=== PATIENT | male | born 1945 | race Caucasian/White ===

== ENCOUNTER → 2016-07-24 | Outpatient (CLI) | payer OTHER ==
--- NOTE | 2016-07-24 16:42 | CT ---
HISTORY: mental status changes and neck lymphadenopathy Study: CT brain without contrast Comparison: None Technique: Multiple axial images of the brain were obtained from the skull base to the vertex without administr ation of IV contrast. Findings: The ventricles are borderline enlarged there is diffuse mild chronic recurrent sulci. No intracrania l hemorrhage or edema is seen. There is mild periventricular low density bilaterally which is fairly symmetric. There is no extra-axial fluid collection or midline shift. No masses are seen. IMPRESSION: Mild cortical atrophy and minimal chronic microischemic changes in the deep white matter with no acu te intracranial abnormality seen. Mild chronic sinusitis. Reported By:
--- NOTE | 2016-07-24 17:27 | CT ---
CT SOFT TISSUE NECK WITHOUT CONTRAST CLINICAL HISTORY: 71-year-old male with enlarged lymph node. COMPARISON: None. TECHNIQUE: Multiple axial CT images were obtained from the supraorbital region to the aortic arch w ithout the administration of contrast. The images were reformatted in the sagittal and coronal plane s. FINDINGS: The visualized brain parenchyma is normal in appearance. The orbits and globes are normal in appearance. Trace mucosal thickening in the left maxillary sinus with the remaining imaged parana onofre sinuses, tympanic cavities and mastoid air cells clear. The nasal cavity, nasopharynx, oropharyn x, hypopharynx, supra- and infraglottic larynx are normal. Neck spaces are normal. Multiple, subcent imeter, normal appearing lymph nodes throughout the neck that are nonspecific. The trachea is normal in appearance. Parotid, sublingual and the submandibular glands are symmetric and unremarkable. The thyroid gland is normal in attenuation and morphology. Vascular structures are incompletely eval uated, but grossly normal in appearance. The lung apices are clear. The aortic arch, great vessels, and superior mediastinum are normal in appearance. Multilevel degenerative disease of the imaged spi ne with no fracture or malalignment of the osseous structures. IMPRESSION: Normal CT soft tissue neck. Reported By:
== END ==
LOC: RAD 14:03
PROVIDERS: ATTEND Nurse Practitioner Family
DX: R59.0 Localized enlarged lymph nodes (principal)
CPT/HCPCS: 70450; 70490

== ENCOUNTER 2020-03-27 10:21 | Inpatient (IN) ==
[2020-03-27 10:36] VITALS: BMI 43.0
--- NOTE | 2020-03-27 11:06 | DR.URIAD ---
HPI Time Seen Time Seen by Provider: 03/27/20 11:02 PCP Primary Care Physician: GORDON HILL Complaint Chief Complaint:: PT STATES HE TESTED POSITIVE FOR COVID 10 DAYS AGO AND HE C/O SWEATING AT NIGHT , GARCIA, AND THAT IS LUNGS ARE NOT FEELING THE SAME ..BR Self Treatment fo Chief Complaint: PO MEDS COVID-19 Coronavirus risk:travel/contact w/high risk person: No Has patient experienced Coronavirus symptoms: Yes Coronavirus symptoms experienced: Fever, Coughing and Shortness of Breath Source History Provided: Patient Mode of Arrival Mode of Arrival: Ambulatory Timing Onset of Chief Complaint: 03/20/20 PMH PMH Past Medical History: No Past Surgical History: Yes Past Surgical History Comment: BACK , CATARACT Family History History of Family Medical Conditions: No Social History Does patient currently use any type of tobacco product: No Have you used tobacco products in the last 12 months: No Type of Tobacco Use: None Does any household member use tobacco: No Alcohol Use: None Do you use any recreational Drugs:: No Lives With: Family Lives Where: Home Travel Risk Coronavirus risk:travel/contact w/high risk person: No Has patient experienced Coronavirus symptoms: Yes Coronavirus symptoms experienced: Fever, Coughing and Shortness of Breath Infectious screening In the last 2 months have you had wt loss of >10#?: NO Have you had fever, night sweats or hemotysis?: No Have you traveled outside the country in the last 6 months?: No Isolation: Droplet PE Vital Signs Vitals: Temperature 97.7 F Pulse Rate 75 Respiratory Rate 22 Blood Pressure 147/92 O2 Sat by Pulse Oximetry 97 ROR Labs Reviewed Result Diagrams: 03/27/20 11:35 03/27/20 11:35 Laboratory: WBC 6.4 X10^3/uL (3.6-10.0) 03/27/20 11:35 RBC 4.50 X10^6/uL (4.7-6.0) L 03/27/20 11:35 Hgb 12.9 g/dL (13.5-18.0) L 03/27/20 11:35 Hct 38.9 % (42.0-54.0) L 03/27/20 11:35 MCV 86.5 fL (80.0-100.0) 03/27/20 11:35 MCH 28.6 pg (27.0-34.0) 03/27/20 11:35 MCHC 33.0 g/dL (33.0-35.0) 03/27/20 11:35 RDW 16.7 % (11.6-16.5) H 03/27/20 11:35 Plt Count 281 X10^3/uL (150.0-450.0) 03/27/20 11:35 MPV 7.1 fL (7.4-11.0) L 03/27/20 11:35 Neut % (Auto) 75.9 % (42.0-75.0) H 03/27/20 11:35 Lymph % (Auto) 13.3 % (21.0-51.0) L 03/27/20 11:35 [place] % (Auto) 9.3 % (0.0-13.0) 03/27/20 11:35 Eos % (Auto) 0.9 % (0.9-2.9) 03/27/20 11:35 Baso % (Auto) 0.6 % (0.2-1.0) 03/27/20 11:35 Neut # (Auto) 4.9 x10^3/uL (2.2-4.8) H 03/27/20 11:35 Lymph # (Auto) 0.9 X10^3/uL (1.3-2.9) L 03/27/20 11:35 [place] # (Auto) 0.6 x10^3/uL (0.3-0.8) 03/27/20 11:35 Eos # (Auto) 0.1 x10^3/uL (0.0-0.2) 03/27/20 11:35 Baso # (Auto) 0.0 X10^3/uL (0.0-0.1) 03/27/20 11:35 Absolute Nucleated RBC 0.0 /100WBC 03/27/20 11:35 Sample Site Lr 03/27/20 11:53 ABG pH 7.440 (7.35-7.45) 03/27/20 11:53 ABG pCO2 39.0 mmHg (35.0-45.0) 03/27/20 11:53 ABG pO2 74.0 mmHg (80.0-100.0) L 03/27/20 11:53 ABG HCO3 26.5 mmol/L (22-26) H 03/27/20 11:53 ABG O2 Saturation 95.0 % (90-100) 03/27/20 11:53 ABG Base Excess 2.2 mmol/L (-2.0-2.0) H 03/27/20 11:53 Eduard Test Pos 03/27/20 11:53 A-a Gradient 27.0 mmHg 03/27/20 11:53 FiO2 21.0 03/27/20 11:53 Blood Gas Comments Ishan well cb 03/27/20 11:53 Sodium 139 mmol/L (136-145) 03/27/20 11:35 Corrected Sodium 140 mmol/L (136-145) 03/27/20 11:35 Potassium 3.7 mmol/L (3.5-5.1) 03/27/20 11:35 Chloride 101 mmol/L (98-107) 03/27/20 11:35 Carbon Dioxide 27.6 mmol/L (21-32) 03/27/20 11:35 BUN 19 mg/dL (7-18) H 03/27/20 11:35 Creatinine 1.18 mg/dL (0.70-1.30) 03/27/20 11:35 Est GFR (MDRD) Af Amer > 60 (>60) 03/27/20 11:35 Est GFR (MDRD) Non-Af > 60 (>60) 03/27/20 11:35 Glucose 129 mg/dL (65-99) H 03/27/20 11:35 Lactic Acid 1.2 mmol/L (0.4-2.0) 03/27/20 11:35 Calcium 9.7 mg/dL (8.5-10.1) 03/27/20 11:35 Corrected Calcium 10.3 mg/dL (8.5-10.1) H 03/27/20 11:35 Total Bilirubin 0.70 mg/dL (0.2-1.0) 03/27/20 11:35 AST 20 Units/L (15-37) 03/27/20 11:35 ALT 19 Units/L (12-78) 03/27/20 11:35 Alkaline Phosphatase 113 Units/L (46-116) 03/27/20 11:35 Creatine Kinase 58 Units/L (39-308) 03/27/20 11:35 CK-MB (CK-2) < 1.0 ng/mL (0-4.0) 03/27/20 11:35 CK/CKMB % Calc 1.7 % (<4) 03/27/20 11:35 Troponin I < 0.02 ng/mL (0-1.5) 03/27/20 11:35 Total Protein 7.9 g/dL (6.4-8.2) 03/27/20 11:35 Albumin 3.3 g/dL (3.4-5.0) L 03/27/20 11:35 Globulin 4.6 g/dL (2.5-4.5) H 03/27/20 11:35 Albumin/Globulin Ratio 0.7 Ratio (1.1-2.1) L 03/27/20 11:35 Specimen Type Clean catch urine 03/27/20 10:59 Urine Color Yellow (YELLOW) 03/27/20 10:59 Urine Appearance Clear (CLEAR) 03/27/20 10:59 Urine pH 6.0 (5.0 - 8.0) 03/27/20 10:59 Ur Specific [place] 1.020 (1.000-1.030) 03/27/20 10:59 Urine Protein 4+ (NEGATIVE) 03/27/20 10:59 Urine Glucose (UA) Negative (NEGATIVE) 03/27/20 10:59 Urine Ketones Negative (NEGATIVE) 03/27/20 10:59 Urine Occult Blood 2+ (NEGATIVE) 03/27/20 10:59 Urine Nitrite Negative (NEGATIVE) 03/27/20 10:59 Urine Bilirubin Negative (NEGATIVE) 03/27/20 10:59 Urine Urobilinogen Normal (NORMAL) 03/27/20 10:59 Ur Leukocyte Esterase Negative (NEGATIVE) 03/27/20 10:59 Urine RBC 5-10 /HPF (0-3) A 03/27/20 10:59 Urine WBC 0-2 /HPF (0-5) 03/27/20 10:59 Ur Squamous Epith Cells Rare /HPF (NEGATIVE) 03/27/20 10:59 Amorphous Sediment 2+ /HPF (NEGATIVE) 03/27/20 10:59 Urine Bacteria Trace /HPF (NEGATIVE) 03/27/20 10:59 Ur Culture Indicated? No/not indicated 03/27/20 10:59 Opioid Opioid Risk Tool Age (Cory box if 16-45): No History of Preadolescent Sexual Abuse: No Total: 0 Total Score Risk Category: Low Risk Copyright: Marquis SANTIZO predicting aberrant behaviors Instructions Forms: Precautions for COVID19 Patient Portal Social Distancing
[2020-03-27 11:15] LABS: BILIRUBIN,URINE NEGATIVE (NEGATIVE); BLOOD/HEMOGLOBIN,URINE 2+ (NEGATIVE); GLUCOSE, URINE NEGATIVE (NEGATIVE); KETONES,URINE NEGATIVE (NEGATIVE); LEUKOCYTE ESTERASE ,URINE NEGATIVE (NEGATIVE); NITRITES,URINE NEGATIVE (NEGATIVE); PROTEIN,URINE 4+ (NEGATIVE); UROBILINOGEN,URINE NORMAL (NORMAL)
[2020-03-27 11:33] LABS: APPEARANCE,URINE CLEAR (CLEAR); COLOR,URINE YELLOW (YELLOW)
[2020-03-27 11:34] LABS: AMORPHOUS SEDIMENT,UR 2+ /HPF (NEGATIVE); BACTERIA,URINE TRACE /HPF (NEGATIVE); SQUAMOUS EPITHELIAL CELL,UR RARE /HPF (NEGATIVE)
--- NOTE | 2020-03-27 11:40 | RAD ---
HISTORYPT STATES HE TESTED POSITIVE FOR COVID 10 DAYS AGO AND HE C/O SWEATING AT NIGHT, GARCIA, AND THAT IS LUNGS ARE NOT FEELING THE SAMESTUDYCHEST, 1 VIEWCOMPARISONChest x-ray dated December 11, 2019.FINDINGSThe trachea is midline. The cardiac silhouette is unchanged. Question of bilateral patchy lower lobe airspace disease. No significant pleural effusion or pneumothorax. The bony thorax is unremarkable.IMPRESSIONQuestion of bilateral patchy airspace disease. Recommend clinical/laboratory correlation and following to resolution.Electronically signed by: BRONSON ALANIZ (Mar 27, 2020 11:38:39)
[2020-03-27 11:58] LABS: ABG ALLEN TEST POS; ABG BASE EXCESS 2.2 mmol/L (-2.0-2.0); ABG HCO3 26.5 mmol/L (22-26)
[2020-03-27 12:01] LABS: BASOPHILS % (AUTO) 0.6 % (0.2-1.0); EOSINOPHILS # (AUTO) 0.1 x10^3/uL (0.0-0.2); EOSINOPHILS % (AUTO) 0.9 % (0.9-2.9); HEMATOCRIT 38.9 % (42.0-54.0); HEMOGLOBIN 12.9 g/dL (13.5-18.0); LYMPHOCYTES # (AUTO) 0.9 X10^3/uL (1.3-2.9); LYMPHOCYTES % (AUTO) 13.3 % (21.0-51.0); MEAN CORPUSCULAR HEMOGLOBIN 28.6 pg (27.0-34.0); MEAN CORPUSCULAR VOLUME 86.5 fL (80.0-100.0); MEAN PLATELET VOLUME 7.1 fL (7.4-11.0); MONOCYTES # (AUTO) 0.6 x10^3/uL (0.3-0.8); MONOCYTES % (AUTO) 9.3 % (0.0-13.0); NEUTROPHILS # (AUTO) 4.9 x10^3/uL (2.2-4.8); NEUTROPHILS % (AUTO) 75.9 % (42.0-75.0); PLATELET COUNT 281 X10^3/uL (150.0-450.0); RED CELL DISTRIBUTION WIDTH 16.7 % (11.6-16.5); WHITE BLOOD COUNT 6.4 X10^3/uL (3.6-10.0)
[2020-03-27 12:18] LABS: LACTIC ACID 1.2 mmol/L (0.4-2.0)
[2020-03-27 12:25] LABS: ALANINE AMINOTRANSFERASE 19 Units/L (12-78); ALBUMIN 3.3 g/dL (3.4-5.0); ALKALINE PHOSPHATASE 113 Units/L (46-116); ASPARTATE AMINO TRANSFERASE 20 Units/L (15-37); BLOOD UREA NITROGEN 19 mg/dL (7-18); CALCIUM 9.7 mg/dL (8.5-10.1); CHLORIDE 101 mmol/L (98-107); CKMB % 1.7 % (<4); COR CA(FOR HYPOALB) 10.3 mg/dL (8.5-10.1); COR NA(FOR HYPERGLY) 140 mmol/L (136-145); CREATINE KINASE 58 Units/L (39-308); CREATINE KINASE MB < 1.0 ng/mL (0-4.0); CREATININE 1.18 mg/dL (0.70-1.30); SODIUM 139 mmol/L (136-145); TOTAL PROTEIN 7.9 g/dL (6.4-8.2); TROPONIN I < 0.02 ng/mL (0-1.5); eGFR NON BLACK RACES > 60 (>60)
[2020-03-27 12:47] LABS: CARBON DIOXIDE 27.6 mmol/L (21-32)
[2020-03-27] MEDS ORDERED: ROCEPHIN 1 GRAM IV PREMIX 1 G/50 ML IV.SOLN. IV SCH (15:00)
[2020-03-27] MEDS ORDERED: NS 1/2 1000 ML IV 1,000 ML IV ONE (15:39)
[2020-03-27] MEDS: NS 1/2 1000 ML IV 1,000 ML IV SCH (15:46)
[2020-03-27] MEDS: ZOSYN VIAL 3.375 GRAMS 3.375 G in NS 100 ML IV + SPIKE MINIBAG* 100 ML IV SCH ×2 (15:46→20:59)
[2020-03-27] MEDS: DUONEB 0.5 MG/3 MG (3 mL) NEB SCH ×2 (16:36→21:10)
[2020-03-27] MEDS: ROBITUSSIN DM PO SCH ×2 (17:47→20:20)
[2020-03-27 18:02] LABS: CREATINE KINASE MB < 1.0 ng/mL (0-4.0); TROPONIN I < 0.02 ng/mL (0-1.5)
[2020-03-27 18:23] LABS: CKMB % 1.5 % (<4); CREATINE KINASE 67 Units/L (39-308)
[2020-03-27] MEDS ORDERED: POTASSIUM CHL 60 MEQ/NS 0.45% 500 ML IV PRN (19:48)
[2020-03-27] MEDS ORDERED: K-DUR TAB 20 MEQ PO PRN (19:48)
[2020-03-27] MEDS ORDERED: K-RIDER 10 MEQ/NS 100 ML 10 MEQ/100 ML BAG IV PRN (19:48)
[2020-03-27] MEDS ORDERED: MICRO K EXTEN CAP 10 MEQ PO PRN (19:48)
[2020-03-27] MEDS ORDERED: POTASSIUM CHL 40 MEQ/NS 0.45% 500 ML IV PRN (19:48)
[2020-03-27] MEDS ORDERED: POTASSIUM CHLORIDE LIQ 20 MEQ UDC PO PRN (19:48)
[2020-03-27] MEDS ORDERED: KLOR-CON PO PRN (19:48)
[2020-03-27] MEDS ORDERED: TYLENOL 325 MG TAB PO ONE (20:03)
[2020-03-27] MEDS ORDERED: NEURONTIN CAP 400 MG ONE ×2 (20:10→20:14)
[2020-03-27] MEDS: PriLOSEC PO SCH (20:20)
[2020-03-27] MEDS: COREG TAB 25 MG PO SCH (20:20)
[2020-03-27] MEDS: ULTRAM PO PRN (20:20)
[2020-03-27] MEDS: TUSSIONEX PENNKINETIC SUSP PO PRN (20:20)
[2020-03-27] MEDS: NEURONTIN CAP 400 MG PO SCH (20:59)
[2020-03-27] MEDS ORDERED: TYLENOL 325 MG TAB PO PRN (21:02)
[2020-03-27] MEDS: PULMICORT NEB TX 0.5 MG NEB SCH (21:10)
[2020-03-27] MEDS ORDERED: CHLORASEPTIC SPRAY MT PRN (23:26)
[2020-03-28 00:04] LABS: CKMB % 1.5 % (<4); CREATINE KINASE 68 Units/L (39-308); CREATINE KINASE MB < 1.0 ng/mL (0-4.0); TROPONIN I < 0.02 ng/mL (0-1.5)
[2020-03-28 05:42] LABS: BASOPHILS % (AUTO) 0.5 % (0.2-1.0); EOSINOPHILS # (AUTO) 0.1 x10^3/uL (0.0-0.2); EOSINOPHILS % (AUTO) 2.6 % (0.9-2.9); HEMATOCRIT 35.1 % (42.0-54.0); HEMOGLOBIN 11.4 g/dL (13.5-18.0); LYMPHOCYTES # (AUTO) 1.2 X10^3/uL (1.3-2.9); LYMPHOCYTES % (AUTO) 25.3 % (21.0-51.0); MEAN CORPUSCULAR HEMOGLOBIN 28.1 pg (27.0-34.0); MEAN CORPUSCULAR HGB CONC 32.5 g/dL (33.0-35.0); MEAN CORPUSCULAR VOLUME 86.3 fL (80.0-100.0); MEAN PLATELET VOLUME 7.6 fL (7.4-11.0); MONOCYTES # (AUTO) 0.7 x10^3/uL (0.3-0.8); MONOCYTES % (AUTO) 14.4 % (0.0-13.0); NEUTROPHILS # (AUTO) 2.7 x10^3/uL (2.2-4.8); NEUTROPHILS % (AUTO) 57.2 % (42.0-75.0); PLATELET COUNT 268 X10^3/uL (150.0-450.0); RED BLOOD COUNT 4.07 X10^6/uL (4.7-6.0); RED CELL DISTRIBUTION WIDTH 16.2 % (11.6-16.5); WHITE BLOOD COUNT 4.7 X10^3/uL (3.6-10.0)
[2020-03-28] MEDS: NS 1/2 1000 ML IV 1,000 ML IV SCH (05:54)
[2020-03-28] MEDS: NEURONTIN CAP 400 MG PO SCH ×3 (05:54→21:14)
[2020-03-28] MEDS: ZOSYN VIAL 3.375 GRAMS 3.375 G in NS 100 ML IV + SPIKE MINIBAG* 100 ML IV SCH ×3 (05:55→21:15)
[2020-03-28 05:56] LABS: ALANINE AMINOTRANSFERASE 19 Units/L (12-78); ALBUMIN 2.9 g/dL (3.4-5.0); ALKALINE PHOSPHATASE 92 Units/L (46-116); ASPARTATE AMINO TRANSFERASE 18 Units/L (15-37); BLOOD UREA NITROGEN 21 mg/dL (7-18); CARBON DIOXIDE 25.2 mmol/L (21-32); CHLORIDE 103 mmol/L (98-107); COR CA(FOR HYPOALB) 9.9 mg/dL (8.5-10.1); CREATININE 1.01 mg/dL (0.70-1.30); SODIUM 139 mmol/L (136-145); TOTAL PROTEIN 6.9 g/dL (6.4-8.2); eGFR NON BLACK RACES > 60 (>60)
[2020-03-28 06:55] LABS: PLATELET MORPHOLOGY COMMENT NORMAL (NORMAL)
--- NOTE | 2020-03-28 08:11 | DR.H&P ---
H&P History & Physical for Day of: H&P Date: 03/28/20 Chief Complaint Chief Complaint: Fevers, Chills, Weakness Shortness of breath Allergies Allergies Allergy/AdvReac Type Severity Reaction Status Date / Time No Known Drug Allergies Allergy Verified 03/27/20 10:32 History of Present Illness History of Present Illness: Pt is a 75 year old male past medical history HTN, DMT2, EARLINE, admitted after having recurrent fevers, chills, shortness of breath, and headache. He was diagnosed with COVID-19 on 03/17. Since he reports symptoms have gradually worsened. Labs/imaging: Wbc 6.4>4.7, Hgb 12.9>11.4, Plt 281>268, Na 139, K 3.8, Cr 1.01, Glucose 101, CRP 62, Troponin negative x 3, UA negative, AB.44/39/74/26.5/95% on RA. CXR: Question of bilateral patchy airspace disease.Recommend clinical/laboratory correlation and following to resolution. Blood Culture and Sputum Culture pending. Pt was started on IVF, Remdesivir, Decadron, Zosyn, Bronchodilators, I/S, RT support, Pneumonia protocol, immune supporting supplements. Will restart home medications. Continue to monitor and follow up labs/imaging in the morning. Past Medical History Past Medical History: Diabetes, Hypertension and Sleep Apnea Family History Family Medical History: Diabetes Mellitus, Cancer, [place], Coronary Artery Disease and Hypertension Social History Does patient currently use any type of tobacco product: No Have you used tobacco products in the last 12 months: No Type of Tobacco Use: None Does any household member use tobacco: No Alcohol Use: None Drug Use: None Medications Home Medications: No Known Drug Allergies Allergy (Verified 03/27/20 10:32) CONTINUE taking the following medications allopurinol 300 mg PO DAILY 03/27/20 [History] carvedilol [Coreg] 25 mg PO BID 03/27/20 [History] finasteride 5 mg PO DAILY 03/27/20 [History] [id number] [Trelegy Ellipta] 1 inh INHALATION DAILY PRN 03/27/20 [History] gabapentin [Neurontin] 800 mg PO TID 03/27/20 [History] losartan 100 mg PO DAILY 03/27/20 [History] omeprazole [Prilosec] 20 mg PO BID 03/27/20 [History] tamsulosin 0.4 mg PO QHS 03/27/20 [History] torsemide 10 mg PO DAILY 03/27/20 [History] tramadol [Ultram] 50 mg PO TID PRN 03/27/20 [History] Labs Result Diagrams: 03/28/20 04:10 03/28/20 04:10 Labs: 03/27/20 15:45 Sputum - Expectorated Sputum - Final Laboratory WBC 4.7 X10^3/uL (3.6-10.0) 03/28/20 04:10 RBC 4.07 X10^6/uL (4.7-6.0) L 03/28/20 04:10 Hgb 11.4 g/dL (13.5-18.0) L 03/28/20 04:10 Hct 35.1 % (42.0-54.0) L 03/28/20 04:10 MCV 86.3 fL (80.0-100.0) 03/28/20 04:10 MCH 28.1 pg (27.0-34.0) 03/28/20 04:10 MCHC 32.5 g/dL (33.0-35.0) L 03/28/20 04:10 RDW 16.2 % (11.6-16.5) 03/28/20 04:10 Plt Count 268 X10^3/uL (150.0-450.0) 03/28/20 04:10 Plt Count Comment Adequate (ADEQUATE) 03/28/20 04:10 MPV 7.6 fL (7.4-11.0) 03/28/20 04:10 Neut % (Auto) 57.2 % (42.0-75.0) 03/28/20 04:10 Lymph % (Auto) 25.3 % (21.0-51.0) 03/28/20 04:10 [place] % (Auto) 14.4 % (0.0-13.0) H 03/28/20 04:10 Eos % (Auto) 2.6 % (0.9-2.9) 03/28/20 04:10 Baso % (Auto) 0.5 % (0.2-1.0) 03/28/20 04:10 Neut # (Auto) 2.7 x10^3/uL (2.2-4.8) 03/28/20 04:10 Lymph # (Auto) 1.2 X10^3/uL (1.3-2.9) L 03/28/20 04:10 [place] # (Auto) 0.7 x10^3/uL (0.3-0.8) 03/28/20 04:10 Eos # (Auto) 0.1 x10^3/uL (0.0-0.2) 03/28/20 04:10 Baso # (Auto) 0.0 X10^3/uL (0.0-0.1) 03/28/20 04:10 Absolute Nucleated RBC 0.1 /100WBC 03/28/20 04:10 Total Counted 100 03/28/20 04:10 Neutrophils % (Manual) 62 % (39-76) 03/28/20 04:10 Lymphocytes % (Manual) 27 % (13-43) 03/28/20 04:10 Monocytes % (Manual) 10 % (4-9) H 03/28/20 04:10 Eosinophils % (Manual) 1 % (0-6) 03/28/20 04:10 Plt Morphology Comment Normal (NORMAL) 03/28/20 04:10 RBC Morphology Normal (NORMAL) 03/28/20 04:10 Sample Site Lr 03/27/20 11:53 ABG pH 7.440 (7.35-7.45) 03/27/20 11:53 ABG pCO2 39.0 mmHg (35.0-45.0) 03/27/20 11:53 ABG pO2 74.0 mmHg (80.0-100.0) L 03/27/20 11:53 ABG HCO3 26.5 mmol/L (22-26) H 03/27/20 11:53 ABG O2 Saturation 95.0 % (90-100) 03/27/20 11:53 ABG Base Excess 2.2 mmol/L (-2.0-2.0) H 03/27/20 11:53 Eduard Test Pos 03/27/20 11:53 A-a Gradient 27.0 mmHg 03/27/20 11:53 FiO2 21.0 03/27/20 11:53 Blood Gas Comments Ishan well cb 03/27/20 11:53 Sodium 139 mmol/L (136-145) 03/28/20 04:10 Corrected Sodium TNP 03/28/20 04:10 Potassium 3.8 mmol/L (3.5-5.1) 03/28/20 04:10 Chloride 103 mmol/L (98-107) 03/28/20 04:10 Carbon Dioxide 25.2 mmol/L (21-32) 03/28/20 04:10 BUN 21 mg/dL (7-18) H 03/28/20 04:10 Creatinine 1.01 mg/dL (0.70-1.30) 03/28/20 04:10 Est GFR (MDRD) Af Amer > 60 (>60) 03/28/20 04:10 Est GFR (MDRD) Non-Af > 60 (>60) 03/28/20 04:10 Glucose 101 mg/dL (65-99) H 03/28/20 04:10 Lactic Acid 1.2 mmol/L (0.4-2.0) 03/27/20 11:35 Calcium 9.0 mg/dL (8.5-10.1) 03/28/20 04:10 Corrected Calcium 9.9 mg/dL (8.5-10.1) 03/28/20 04:10 Magnesium 2.0 mg/dL (1.7-2.9) 03/27/20 17:31 Total Bilirubin 0.50 mg/dL (0.2-1.0) 03/28/20 04:10 AST 18 Units/L (15-37) 03/28/20 04:10 ALT 19 Units/L (12-78) 03/28/20 04:10 Alkaline Phosphatase 92 Units/L (46-116) 03/28/20 04:10 Creatine Kinase 68 Units/L (39-308) 03/27/20 22:48 CK-MB (CK-2) < 1.0 ng/mL (0-4.0) 03/27/20 22:48 CK/CKMB % Calc 1.5 % (<4) 03/27/20 22:48 Troponin I < 0.02 ng/mL (0-1.5) 03/27/20 22:48 C-Reactive Protein 62.10 mg/L (0-3.0) H 03/28/20 04:10 Total Protein 6.9 g/dL (6.4-8.2) 03/28/20 04:10 Albumin 2.9 g/dL (3.4-5.0) L 03/28/20 04:10 Globulin 4.0 g/dL (2.5-4.5) 03/28/20 04:10 Albumin/Globulin Ratio 0.7 Ratio (1.1-2.1) L 03/28/20 04:10 Specimen Type Clean catch urine 03/27/20 10:59 Urine Color Yellow (YELLOW) 03/27/20 10:59 Urine Appearance Clear (CLEAR) 03/27/20 10:59 Urine pH 6.0 (5.0 - 8.0) 03/27/20 10:59 Ur Specific [place] 1.020 (1.000-1.030) 03/27/20 10:59 Urine Protein 4+ (NEGATIVE) 03/27/20 10:59 Urine Glucose (UA) Negative (NEGATIVE) 03/27/20 10:59 Urine Ketones Negative (NEGATIVE) 03/27/20 10:59 Urine Occult Blood 2+ (NEGATIVE) 03/27/20 10:59 Urine Nitrite Negative (NEGATIVE) 03/27/20 10:59 Urine Bilirubin Negative (NEGATIVE) 03/27/20 10:59 Urine Urobilinogen Normal (NORMAL) 03/27/20 10:59 Ur Leukocyte Esterase Negative (NEGATIVE) 03/27/20 10:59 Urine RBC 5-10 /HPF (0-3) A 03/27/20 10:59 Urine WBC 0-2 /HPF (0-5) 03/27/20 10:59 Ur Squamous Epith Cells Rare /HPF (NEGATIVE) 03/27/20 10:59 Amorphous Sediment 2+ /HPF (NEGATIVE) 03/27/20 10:59 Urine Bacteria Trace /HPF (NEGATIVE) 03/27/20 10:59 Ur Culture Indicated? No/not indicated 03/27/20 10:59 Review of Systems Constitutional: Fever, Chills and Weakness Eyes: No Symptoms Reported ENT: No Symptoms Reported Respiratory: Cough and Shortness of Breath Cardiovascular: No Symptoms Reported Gastrointestinal: No Symptoms Reported Genitourinary: No Symptoms Reported Musculoskeletal: No Symptoms Reported Skin: No Symptoms Reported Neurological: No Symptoms Reported Physical Exam Vital Signs: Temperature 97.8 F Pulse Rate 90 Respiratory Rate 16 Blood Pressure [Left Arm] 137/78 Blood Pressure 115/55 O2 Sat by Pulse Oximetry 93 Oriented: Normal Eyes: Normal Ear: Normal Nose: Normal Throat: Normal Respiratory: Diminished Throughout Cardiovascular: Normal : Normal Auscultation: Bowel Sounds: Normal Palpation: Normal Tenderness: Normal Skin: Normal Musculoskeletal: Normal Psychiatric: Normal Mood Description: Calm and Appropriate Affect: Normal Speech Pattern: Clear and Appropriate Assessment/Plan (1) Pneumonia due to COVID-19 virus: Status: Acute Plan: IVF, Remdesivir, Decadron, Zosyn, Bronchodilators. Review H&P Reviewed: Yes Patient was examined?: Yes
[2020-03-28] MEDS ORDERED: REMDESIVIR 200 MG in NS 250 ML IV 250 ML IV SCH (08:13)
[2020-03-28] MEDS: PULMICORT NEB TX 0.5 MG NEB SCH ×2 (08:57→20:34)
[2020-03-28] MEDS: DUONEB 0.5 MG/3 MG (3 mL) NEB SCH ×4 (08:57→20:34)
[2020-03-28] MEDS ORDERED: PATIENT'S HOME MEDICATION (Fluticasone-Umeclidin-Vilanter [Trelegy Ellipta] 100-62.5-25 mc IN SCH (09:00)
[2020-03-28] MEDS: COREG TAB 25 MG PO SCH ×2 (09:01→21:12)
[2020-03-28] MEDS: PROSCAR PO SCH (09:04)
[2020-03-28] MEDS: ZYLOPRIM PO SCH (09:04)
[2020-03-28] MEDS: ROBITUSSIN DM PO SCH ×4 (09:05→21:14)
[2020-03-28] MEDS: COZAAR PO SCH (09:05)
[2020-03-28] MEDS: PriLOSEC PO SCH ×2 (09:06→21:14)
[2020-03-28] MEDS: DEMADEX PO SCH (09:08)
[2020-03-28] MEDS: LOVENOX INJ 30 MG SYR SC SCH ×2 (09:50→21:13)
[2020-03-28] MEDS: DECADRON TAB PO SCH (09:50)
[2020-03-28] MEDS: ULTRAM PO PRN (22:00)
[2020-03-28] MEDS: TUSSIONEX PENNKINETIC SUSP PO PRN (22:00)
[2020-03-29] MEDS: NS 1/2 1000 ML IV 1,000 ML IV SCH ×2 (03:13→05:36)
[2020-03-29] MEDS ORDERED: NS 1/2 1000 ML IV 1,000 ML IV ONE (05:26)
[2020-03-29] MEDS: NEURONTIN CAP 400 MG PO SCH (05:35)
[2020-03-29] MEDS: ZOSYN VIAL 3.375 GRAMS 3.375 G in NS 100 ML IV + SPIKE MINIBAG* 100 ML IV SCH (05:36)
[2020-03-29 05:42] LABS: BASOPHILS % (AUTO) 0.3 % (0.2-1.0); HEMATOCRIT 34.9 % (42.0-54.0); HEMOGLOBIN 11.2 g/dL (13.5-18.0); LYMPHOCYTES # (AUTO) 0.6 X10^3/uL (1.3-2.9); LYMPHOCYTES % (AUTO) 11.7 % (21.0-51.0); MEAN CORPUSCULAR HGB CONC 32.1 g/dL (33.0-35.0); MEAN PLATELET VOLUME 7.7 fL (7.4-11.0); MONOCYTES # (AUTO) 0.5 x10^3/uL (0.3-0.8); MONOCYTES % (AUTO) 10.2 % (0.0-13.0); NEUTROPHILS # (AUTO) 3.8 x10^3/uL (2.2-4.8); NEUTROPHILS % (AUTO) 77.8 % (42.0-75.0); PLATELET COUNT 307 X10^3/uL (150.0-450.0); RED BLOOD COUNT 4.01 X10^6/uL (4.7-6.0); RED CELL DISTRIBUTION WIDTH 16.4 % (11.6-16.5); WHITE BLOOD COUNT 4.9 X10^3/uL (3.6-10.0)
[2020-03-29 05:45] LABS: ALANINE AMINOTRANSFERASE 20 Units/L (12-78); ALBUMIN 2.7 g/dL (3.4-5.0); ALKALINE PHOSPHATASE 87 Units/L (46-116); ASPARTATE AMINO TRANSFERASE 20 Units/L (15-37); BLOOD UREA NITROGEN 22 mg/dL (7-18); CARBON DIOXIDE 26.2 mmol/L (21-32); CHLORIDE 103 mmol/L (98-107); COR NA(FOR HYPERGLY) 142 mmol/L (136-145); SODIUM 140 mmol/L (136-145); TOTAL PROTEIN 6.9 g/dL (6.4-8.2); eGFR NON BLACK RACES > 60 (>60)
--- NOTE | 2020-03-29 08:05 | RAD ---
HISTORYSOBSTUDYCHEST, 1 [id number] view of the chestFINDINGSCardiac silhouette is mildly enlarged. Mild scattered interstitial opacities appears similar. No pleural effusion or pneumothorax. Soft tissue attenuation limits evaluation.IMPRESSIONNo significant change. Bilateral interstitial opacities may represent atypical pneumonia.Electronically signed by: Miguel Eddy (Mar 29, 2020 08:03:33)
--- NOTE | 2020-03-29 08:14 | W.DIS.FURT ---
Summary of Discharge Discharge Summary of Date Date of Exam: 03/29/20 Admission Date Date of Admission: 03/27/20 Admission Diagnosis Hospital Course: Pt is a 75 year old male past medical history HTN, DMT2, EARLINE, admitted for COVID-19 pneumonia(positive on 03/17). His hospital/treatment course included: IVF, Remdesivir, Decadron, Zosyn, Bronchodilators, I/S, RT support, Pneumonia protocol, immune supporting supplements. Labs/imaging: Wbc 4.9, Hgb 11.2, Plt 307, Na 140, K 3.8, Cr 1.10, Glucose 193, CRP 62>34, Troponin negative x 3, UA negative, CXR: No significant change. Bilateral interstitial opacities may represent atypical pneumonia. Pt responded well to treatments. He did not require any supplemental oxygen. Rx levaquin and decadron x 3 days. Pt was discharged in stable condition, instructed to follow up with pcp in 3-5 days. Vital Signs: Vital Signs (72 hours) 03/27/20 10:32 03/27/20 11:06 03/27/20 11:15 Temperature 97.7 F Pulse Rate 120 H 140 H 94 H Respiratory Rate 22 Blood Pressure 156/93 Blood Pressure [Left Arm] O2 Sat by Pulse Oximetry 98 98 96 03/27/20 11:28 03/27/20 11:30 03/27/20 11:45 Temperature Pulse Rate 88 90 89 Respiratory Rate Blood Pressure 147/92 Blood Pressure [Left Arm] O2 Sat by Pulse Oximetry 98 99 97 03/27/20 12:00 03/27/20 12:15 03/27/20 12:30 Temperature Pulse Rate 85 82 83 Respiratory Rate Blood Pressure Blood Pressure [Left Arm] O2 Sat by Pulse Oximetry 97 96 97 03/27/20 12:45 03/27/20 13:00 03/27/20 13:15 Temperature Pulse Rate 84 70 75 Respiratory Rate Blood Pressure Blood Pressure [Left Arm] O2 Sat by Pulse Oximetry 97 97 97 03/27/20 13:38 03/27/20 13:39 03/27/20 13:40 Temperature Pulse Rate 87 84 85 Respiratory Rate Blood Pressure 176/95 177/92 175/92 Blood Pressure [Left Arm] O2 Sat by Pulse Oximetry 97 95 97 03/27/20 13:41 03/27/20 13:45 03/27/20 14:00 Temperature 98.8 F Pulse Rate 83 84 83 Respiratory Rate 20 Blood Pressure 168/83 Blood Pressure [Left Arm] 137/78 O2 Sat by Pulse Oximetry 97 99 98 03/27/20 14:15 03/27/20 15:00 03/27/20 15:08 Temperature 99.3 F Pulse Rate 80 80 76 Respiratory Rate 18 Blood Pressure 168/83 Blood Pressure [Left Arm] O2 Sat by Pulse Oximetry 96 96 96 03/27/20 15:15 03/27/20 15:30 03/27/20 15:45 Temperature Pulse Rate 75 77 83 Respiratory Rate 17 34 H 34 H Blood Pressure Blood Pressure [Left Arm] O2 Sat by Pulse Oximetry 95 95 95 03/27/20 16:00 03/27/20 16:15 03/27/20 16:30 Temperature Pulse Rate 72 73 67 Respiratory Rate 17 18 17 Blood Pressure 134/70 Blood Pressure [Left Arm] O2 Sat by Pulse Oximetry 94 L 95 95 03/27/20 16:36 03/27/20 16:45 03/27/20 17:00 Temperature Pulse Rate 69 68 68 Respiratory Rate 7 L 12 Blood Pressure 130/65 Blood Pressure [Left Arm] O2 Sat by Pulse Oximetry 96 98 97 03/27/20 17:15 03/27/20 17:30 03/27/20 17:45 Temperature Pulse Rate 70 72 79 Respiratory Rate 15 20 22 Blood Pressure Blood Pressure [Left Arm] O2 Sat by Pulse Oximetry 96 95 98 03/27/20 18:01 03/27/20 18:15 03/27/20 18:30 Temperature Pulse Rate 83 80 74 Respiratory Rate 35 H 33 H 18 Blood Pressure 131/94 Blood Pressure [Left Arm] O2 Sat by Pulse Oximetry 96 97 95 03/27/20 19:00 03/27/20 20:00 03/27/20 20:20 Temperature 99.5 F Pulse Rate 77 76 Respiratory Rate 17 22 22 Blood Pressure 149/72 142/77 Blood Pressure [Left Arm] O2 Sat by Pulse Oximetry 96 96 03/27/20 21:00 03/27/20 21:10 03/27/20 21:20 Temperature Pulse Rate 74 77 Respiratory Rate 24 20 Blood Pressure 133/73 Blood Pressure [Left Arm] O2 Sat by Pulse Oximetry 94 L 95 03/27/20 22:00 03/27/20 23:00 03/28/20 00:00 Temperature 98.2 F Pulse Rate 67 65 54 L Respiratory Rate 17 22 18 Blood Pressure 147/67 169/80 119/62 Blood Pressure [Left Arm] O2 Sat by Pulse Oximetry 94 L 94 L 95 03/28/20 01:00 03/28/20 02:00 03/28/20 03:00 Temperature Pulse Rate 55 L 53 L 53 L Respiratory Rate 15 14 15 Blood Pressure 126/61 114/55 118/58 Blood Pressure [Left Arm] O2 Sat by Pulse Oximetry 95 95 95 03/28/20 04:00 03/28/20 05:00 03/28/20 06:00 Temperature 97.8 F Pulse Rate 53 L 54 L 90 Respiratory Rate 15 16 16 Blood Pressure 123/63 134/65 115/55 Blood Pressure [Left Arm] O2 Sat by Pulse Oximetry 95 95 93 L 03/28/20 07:00 03/28/20 08:00 03/28/20 08:57 Temperature 98.2 F Pulse Rate 59 L 75 73 Respiratory Rate 16 24 Blood Pressure 133/63 150/89 Blood Pressure [Left Arm] O2 Sat by Pulse Oximetry 95 97 95 03/28/20 09:00 03/28/20 10:00 03/28/20 11:00 Temperature Pulse Rate 72 63 60 Respiratory Rate 16 16 15 Blood Pressure 137/77 115/56 131/62 Blood Pressure [Left Arm] O2 Sat by Pulse Oximetry 98 92 L 94 L 03/28/20 12:00 03/28/20 12:07 03/28/20 13:00 Temperature 98.3 F Pulse Rate 66 68 69 Respiratory Rate 18 24 Blood Pressure 117/101 157/109 Blood Pressure [Left Arm] O2 Sat by Pulse Oximetry 98 98 95 03/28/20 14:00 03/28/20 15:00 03/28/20 16:00 Temperature 98.4 F Pulse Rate 66 67 72 Respiratory Rate 16 20 17 Blood Pressure 125/64 137/64 121/58 Blood Pressure [Left Arm] O2 Sat by Pulse Oximetry 95 94 L 90 L 03/28/20 16:44 03/28/20 17:00 03/28/20 18:00 Temperature Pulse Rate 80 72 82 Respiratory Rate 17 21 Blood Pressure 148/70 161/66 Blood Pressure [Left Arm] O2 Sat by Pulse Oximetry 97 94 L 94 L 03/28/20 19:00 03/28/20 20:00 03/28/20 20:34 Temperature 98.6 F Pulse Rate 76 75 84 Respiratory Rate 18 17 Blood Pressure 132/67 150/71 Blood Pressure [Left Arm] O2 Sat by Pulse Oximetry 94 L 96 96 03/28/20 21:00 03/28/20 22:00 03/28/20 23:00 Temperature Pulse Rate 80 79 72 Respiratory Rate 22 20 20 Blood Pressure 132/68 149/80 139/64 Blood Pressure [Left Arm] O2 Sat by Pulse Oximetry 94 L 94 L 94 L 03/29/20 00:00 03/29/20 01:00 03/29/20 02:00 Temperature 97.8 F Pulse Rate 66 63 62 Respiratory Rate 16 15 17 Blood Pressure 155/71 140/64 147/71 Blood Pressure [Left Arm] O2 Sat by Pulse Oximetry 93 L 93 L 95 03/29/20 03:00 03/29/20 04:00 03/29/20 05:00 Temperature 98 F Pulse Rate 58 L 62 57 L Respiratory Rate 17 14 12 Blood Pressure 147/67 149/67 148/70 Blood Pressure [Left Arm] O2 Sat by Pulse Oximetry 95 94 L 94 L Labs: Laboratory Last Values WBC 4.9 X10^3/uL (3.6-10.0) 03/29/20 04:10 RBC 4.01 X10^6/uL (4.7-6.0) L 03/29/20 04:10 Hgb 11.2 g/dL (13.5-18.0) L 03/29/20 04:10 Hct 34.9 % (42.0-54.0) L 03/29/20 04:10 MCV 87.0 fL (80.0-100.0) 03/29/20 04:10 MCH 28.0 pg (27.0-34.0) 03/29/20 04:10 MCHC 32.1 g/dL (33.0-35.0) L 03/29/20 04:10 RDW 16.4 % (11.6-16.5) 03/29/20 04:10 Plt Count 307 X10^3/uL (150.0-450.0) 03/29/20 04:10 Plt Count Comment Adequate (ADEQUATE) 03/28/20 04:10 MPV 7.7 fL (7.4-11.0) 03/29/20 04:10 Neut % (Auto) 77.8 % (42.0-75.0) H 03/29/20 04:10 Lymph % (Auto) 11.7 % (21.0-51.0) L 03/29/20 04:10 [place] % (Auto) 10.2 % (0.0-13.0) 03/29/20 04:10 Eos % (Auto) 0.0 % (0.9-2.9) L 03/29/20 04:10 Baso % (Auto) 0.3 % (0.2-1.0) 03/29/20 04:10 Neut # (Auto) 3.8 x10^3/uL (2.2-4.8) 03/29/20 04:10 Lymph # (Auto) 0.6 X10^3/uL (1.3-2.9) L 03/29/20 04:10 [place] # (Auto) 0.5 x10^3/uL (0.3-0.8) 03/29/20 04:10 Eos # (Auto) 0.0 x10^3/uL (0.0-0.2) 03/29/20 04:10 Baso # (Auto) 0.0 X10^3/uL (0.0-0.1) 03/29/20 04:10 Absolute Nucleated RBC 0.2 /100WBC 03/29/20 04:10 Total Counted 100 03/28/20 04:10 Neutrophils % (Manual) 62 % (39-76) 03/28/20 04:10 Lymphocytes % (Manual) 27 % (13-43) 03/28/20 04:10 Monocytes % (Manual) 10 % (4-9) H 03/28/20 04:10 Eosinophils % (Manual) 1 % (0-6) 03/28/20 04:10 Plt Morphology Comment Normal (NORMAL) 03/28/20 04:10 RBC Morphology Normal (NORMAL) 03/28/20 04:10 Sample Site Lr 03/27/20 11:53 ABG pH 7.440 (7.35-7.45) 03/27/20 11:53 ABG pCO2 39.0 mmHg (35.0-45.0) 03/27/20 11:53 ABG pO2 74.0 mmHg (80.0-100.0) L 03/27/20 11:53 ABG HCO3 26.5 mmol/L (22-26) H 03/27/20 11:53 ABG O2 Saturation 95.0 % (90-100) 03/27/20 11:53 ABG Base Excess 2.2 mmol/L (-2.0-2.0) H 03/27/20 11:53 Deuard Test Pos 03/27/20 11:53 A-a Gradient 27.0 mmHg 03/27/20 11:53 FiO2 21.0 03/27/20 11:53 Blood Gas Comments Ishan well cb 03/27/20 11:53 Sodium 140 mmol/L (136-145) 03/29/20 04:10 Corrected Sodium 142 mmol/L (136-145) 03/29/20 04:10 Potassium 3.8 mmol/L (3.5-5.1) 03/29/20 04:10 Chloride 103 mmol/L (98-107) 03/29/20 04:10 Carbon Dioxide 26.2 mmol/L (21-32) 03/29/20 04:10 BUN 22 mg/dL (7-18) H 03/29/20 04:10 Creatinine 1.10 mg/dL (0.70-1.30) 03/29/20 04:10 Est GFR (MDRD) Af Amer > 60 (>60) 03/29/20 04:10 Est GFR (MDRD) Non-Af > 60 (>60) 03/29/20 04:10 Glucose 193 mg/dL (65-99) H 03/29/20 04:10 Lactic Acid 1.2 mmol/L (0.4-2.0) 03/27/20 11:35 Calcium 9.0 mg/dL (8.5-10.1) 03/29/20 04:10 Corrected Calcium 10.0 mg/dL (8.5-10.1) 03/29/20 04:10 Magnesium 2.0 mg/dL (1.7-2.9) 03/27/20 17:31 Total Bilirubin 0.30 mg/dL (0.2-1.0) 03/29/20 04:10 AST 20 Units/L (15-37) 03/29/20 04:10 ALT 20 Units/L (12-78) 03/29/20 04:10 Alkaline Phosphatase 87 Units/L (46-116) 03/29/20 04:10 Creatine Kinase 68 Units/L (39-308) 03/27/20 22:48 CK-MB (CK-2) < 1.0 ng/mL (0-4.0) 03/27/20 22:48 CK/CKMB % Calc 1.5 % (<4) 03/27/20 22:48 Troponin I < 0.02 ng/mL (0-1.5) 03/27/20 22:48 C-Reactive Protein 34.10 mg/L (0-3.0) H 03/29/20 04:10 Total Protein 6.9 g/dL (6.4-8.2) 03/29/20 04:10 Albumin 2.7 g/dL (3.4-5.0) L 03/29/20 04:10 Globulin 4.2 g/dL (2.5-4.5) 03/29/20 04:10 Albumin/Globulin Ratio 0.6 Ratio (1.1-2.1) L 03/29/20 04:10 Specimen Type Clean catch urine 03/27/20 10:59 Urine Color Yellow (YELLOW) 03/27/20 10:59 Urine Appearance Clear (CLEAR) 03/27/20 10:59 Urine pH 6.0 (5.0 - 8.0) 03/27/20 10:59 Ur Specific [place] 1.020 (1.000-1.030) 03/27/20 10:59 Urine Protein 4+ (NEGATIVE) 03/27/20 10:59 Urine Glucose (UA) Negative (NEGATIVE) 03/27/20 10:59 Urine Ketones Negative (NEGATIVE) 03/27/20 10:59 Urine Occult Blood 2+ (NEGATIVE) 03/27/20 10:59 Urine Nitrite Negative (NEGATIVE) 03/27/20 10:59 Urine Bilirubin Negative (NEGATIVE) 03/27/20 10:59 Urine Urobilinogen Normal (NORMAL) 03/27/20 10:59 Ur Leukocyte Esterase Negative (NEGATIVE) 03/27/20 10:59 Urine RBC 5-10 /HPF (0-3) A 03/27/20 10:59 Urine WBC 0-2 /HPF (0-5) 03/27/20 10:59 Ur Squamous Epith Cells Rare /HPF (NEGATIVE) 03/27/20 10:59 Amorphous Sediment 2+ /HPF (NEGATIVE) 03/27/20 10:59 Urine Bacteria Trace /HPF (NEGATIVE) 03/27/20 10:59 Ur Culture Indicated? No/not indicated 03/27/20 10:59 Reason For Visit: PNEUMONIA, RESPIRATORY DISTRESS Discharge Date Discharge Date: 03/29/20 Discharge Diagnosis All Active Problems (Updated 03/28/20 @ 15:59 by Diaz Leyva) Pneumonia due to COVID-19 virus (Acute) Respiratory distress (Acute) Pneumonia (Acute) Plan of Treatment: Continue with present treatment and follow up plan. Pt is to keep follow up appointment as instructed and take medications as ordered. Discharge Medications Discharge Medications: No Known Drug Allergies Allergy (Verified 03/27/20 10:32) CONTINUE taking the following medications Trelegy Ellipta 1 inh INHALATION DAILY PRN 03/27/20 [History] allopurinol 300 mg PO DAILY 03/27/20 [History] carvedilol [Coreg] 25 mg PO BID 03/27/20 [History] finasteride 5 mg PO DAILY 03/27/20 [History] gabapentin [Neurontin] 800 mg PO TID 03/27/20 [History] losartan 100 mg PO DAILY 03/27/20 [History] omeprazole 20 mg PO BID 03/27/20 [History] tamsulosin 0.4 mg PO QHS 03/27/20 [History] torsemide 10 mg PO DAILY 03/27/20 [History] tramadol [Ultram] 50 mg PO TID PRN 03/27/20 [History] New Prescriptions dexamethasone 4 mg PO DAILY 3 Days #3 tab 03/29/20 [Rx] levofloxacin 750 mg PO Q24H #3 tab 03/29/20 [Rx] Follow up and Referral Follow Up: 1 Week Discharge Disposition Discharge Disposition: Home Discharge Condition: Stable Discharge Plan Discharge Plan Hospital Course: Pt is a 75 year old male past medical history HTN, DMT2, EARLINE, admitted for COVID-19 pneumonia(positive on 03/17). His hospital/treatment course included: IVF, Remdesivir, Decadron, Zosyn, Bronchodilators, I/S, RT support, Pneumonia protocol, immune supporting supplements. Labs/imaging: Wbc 4.9, Hgb 11.2, Plt 307, Na 140, K 3.8, Cr 1.10, Glucose 193, CRP 62>34, Troponin negative x 3, UA negative, CXR: No significant change. Bilateral interstitial opacities may repre sent atypical pneumonia. Pt responded well to treatments. He did not require any supplemental oxygen. Rx levaquin and decadron x 3 days. Pt was discharged in stable condition, instructed to follow up with pcp in 3-5 days. Patient Disposition: 01 HOME, SELF-CARE Condition: Stable Health Concerns: Post Hospitalization: new medications and changes needed to prevent readmission or further decline. Pt educated and given instructions on all concerns. Care Plan Goals: Problem: Respiratory Complications Goal: Improved Uncomplicated Respiratory Status Instructions: Follow provided instructions. Follow up with primary physician as directed. Contact primary care physician or report to the closest Emergency Room if condition worsens. Plan of Treatment: Continue with present treatment and follow up plan. Pt is to keep follow up appointment as instructed and take medications as ordered. Prescriptions: New dexamethasone 4 mg Tablet 4 mg PO DAILY 3 Days Qty: 3 RF: 0 levofloxacin 750 mg tablet 750 mg PO Q24H Qty: 3 RF: 0 Continued losartan 50 mg tablet 100 mg PO DAILY RF: 0 carvedilol [Coreg] 25 mg Tablet 25 mg PO BID RF: 0 torsemide 10 mg Tablet 10 mg PO DAILY RF: 0 tramadol [Ultram] 50 mg Tablet 50 mg PO TID PRN (Reason: Pain) RF: 0 gabapentin [Neurontin] 800 mg Tablet 800 mg PO TID RF: 0 omeprazole 20 mg Capsule,Delayed Release(Dr/Ec) 20 mg PO BID RF: 0 allopurinol 300 mg Tablet 300 mg PO DAILY RF: 0 finasteride 5 mg Tablet 5 mg PO DAILY RF: 0 Trelegy Ellipta 100-62.5-25 mcg blister with device 1 inh INHALATION DAILY PRN (Reason: Shortness Of Breath Or Wheezing) RF: 0 tamsulosin 0.4 mg Capsule 0.4 mg PO QHS RF: 0 Follow ups/Referrals Follow ups/Referrals: TRENA ALEXANDRE [Primary Care Provider] - 04/05/20 1:20 pm (DR LEYVA [facility] OFFICE ) Instructions Instructions: Shortness of Breath, Adult, [id number], Hand Washing, Easy-to- Read, Droplet Precautions, [id number], Contact Precautions, [id number], Viral Respiratory Infection, Community-Acquired Pneumonia, Adult Stand Alone Forms: Excuse From Work or School, Precautions for COVID19, Patient Portal, Social Distancing
[2020-03-29] MEDS ORDERED: REMDESIVIR 100 MG in NS 250 ML IV 250 ML IV SCH (09:00)
[2020-03-29] MEDS: PULMICORT NEB TX 0.5 MG NEB SCH (09:10)
[2020-03-29] MEDS: DUONEB 0.5 MG/3 MG (3 mL) NEB SCH (09:10)
[2020-03-29] MEDS: ZYLOPRIM PO SCH (09:16)
[2020-03-29] MEDS: COREG TAB 25 MG PO SCH (09:16)
[2020-03-29] MEDS: LOVENOX INJ 30 MG SYR SC SCH (09:17)
[2020-03-29] MEDS: DEMADEX PO SCH (09:17)
[2020-03-29] MEDS: PriLOSEC PO SCH (09:17)
[2020-03-29] MEDS: COZAAR PO SCH (09:17)
[2020-03-29] MEDS: ROBITUSSIN DM PO SCH (09:17)
[2020-03-29] MEDS: PROSCAR PO SCH (09:18)
[2020-03-29] MEDS: DECADRON TAB PO SCH (09:18)
[2020-03-29 11:17] VITALS: BP 137/95
== END 2020-03-29 11:30 | disposition home or self-care (01) | DRG 177 ==
LOC: ER 10:25 → ICU 13:58
PROVIDERS: ADMIT Family Medicine; ATTEND Family Medicine
DX: U07.1 COVID-19; I10 Essential (primary) hypertension; J12.89 Other viral pneumonia; R51.9 Headache, unspecified; R06.02 Shortness of breath; R79.82 Elevated C-reactive protein (CRP)

== ENCOUNTER 2021-02-27 22:18 | Inpatient (IN) ==
[2021-02-27] MEDS ORDERED: NS 100 ML IV 100 ML ONE (22:34)
[2021-02-27] MEDS ORDERED: CARDIZEM INJ 50 MG VIAL ONE (22:35)
[2021-02-27] MEDS ORDERED: CARDIZEM INJ 125 MG VIAL ONE (22:35)
[2021-02-27] MEDS ORDERED: CARDIZEM INJ 50 MG VIAL IVP ONE (22:52)
[2021-02-27] MEDS ORDERED: CARDIZEM INJ 125 MG VIAL 125 MG in NS 100 ML IV 100 ML IV PRN (22:53)
--- NOTE | 2021-02-27 22:53 | DR.CP ---
HPI Time Seen Time Seen by Provider: 02/27/21 22:43 HPI Comment HPI Comment: PATIENT IS 76YR OLD MALE WITH HISTORY OF DM, HTN AND COPD IN ER WITH CHEST PRESSURE AND RAPID HEART RATE. SYMPTOMS ASSOCIATED WITH SOB. NO COUGH OR CONGESTION.HAVE CHRONIC HEADACHE THAT IS WORSE TONIGHT. PATIENT SAID HE IS S LIGHTLY DIZZY. DENIES SYNCOPAL EPISODES OR NEAR SYNCOPAL EPISODES. Complaint Chief Complaint Doctor Comments: RAPID HEART RATE, CHEST PAIN. COVID-19 Coronavirus risk:travel/contact w/high risk person: No Has patient experienced Coronavirus symptoms: No Reviewed Nurses Notes Review: Yes Source History Provided: Patient and Family Member Mode of Arrival Mode of Arrival: Ambulatory Timing Came on: Suddenly Pain: Present Now Duration Duration: Constant Duration: Hours Location Location of Chest Pain: Chest Chest Pain Radiation Location: None Context Onset: At rest Cardiac Risk Factors: HTN and Diabetes PE Risk Factors: None History of: None Prehospital Care: None Quality Quality: Sharp Severity Severity: Moderate Modifying Factors Worsens: Exertion Impoves: Rest Associated Signs and Symptoms Associated Signs and Symptoms: Shortness of Breath PMH PMH Past Medical History: Diabetes, Hypertension and Sleep Apnea Past Surgical History: Yes Family History Family Medical History: Diabetes Mellitus, Cancer, [place], Coronary Artery Disease and Hypertension Social History Do you use any recreational Drugs:: No ROS Review of Systems Constitutional: See HPI, Weakness and Fatigue; negative Fever Eyes: No Symptoms Reported and See HPI; negative Blurred Vision and Diplopia ENTM: No Symptoms Reported and See HPI; negative Nose Discharge and Nose Conges tion Respiratoy: See HPI and Short of Breath; negative Moist Cough and Wheezing Cardiovascular: See HPI, Chest Pain and Palpitations Gastrointestinal/Abdominal: No Symptoms Reported and See HPI; negative Abdominal Pain, Diarrhea and Vomiting Genitourinary: No Symptoms Reported and See HPI; negative Dysuria, Frequency and Hematuria Neurological: No Symptoms Reported, See HPI, Headache, Weakness and Dizziness Musculoskeletal: No Symptoms Reported and See HPI; negative Back Pain and Muscle Pain Integumentary: No Symptoms Reported and See HPI; negative Change in Color, Rash and Juandice Hematologic/Lymphatic: No Symptoms Reported and See HPI Endocrine: No Symptoms Reported and See HPI; negative Increased Thirst and Increased Urine Psychiatric: No Symptoms Reported and See HPI All Other Systems: Reviewed and Negative PE Vitals Vitals: Temperature 98.8 F Pulse Rate 65 Respiratory Rate 21 Blood Pressure [Left Arm] 137/78 Blood Pressure 123/70 O2 Sat by Pulse Oximetry 96 General Limitations: No Limitations General Appearance: Alert and In No Apparent Distress Head Head Exam: Normal Inspection and Atraumatic Eyes Eye exam: Normal Appearance; negative Scleral Icterus and Conjunctival Injection ENT ENT Exam: Normal Exam, Normal Oropharynx, Normal External Ear Exam and TM's Normal Bilaterally Chest Chest Inspection: Normal Inspection and Symmetric Chest Wall Rise; negative Tenderness Respiratory Respiratory Exam: Normal Lung Sounds Bilat; negative Accessory Muscle Use, Chest Wall Tenderness and Respiratory Distress Respiratory Exam: Bilateral: Rhonchi and Lower: Rhonchi Cardiovascular Cardiovascular Exam: Normal Rhythm, Tachycardia and Irregular Rhythm; negative Systolic Murmur and Diastolic Murmur Pulse: Irregular Edema: 1 Abdominal Exam Abdominal Exam: Normal Inspection, Normal Bowel Sounds and Soft; negative Tenderness Extremities Extremities Exam: Normal Inspection, Normal Capillary Refill and Edema Back Back Exam: Normal Inspection; negative (R) CVA Tenderness and (L) CVA Tenderness Neurologic Neurological Exam: Alert and Oriented X3; negative Motor Sensory Deficit Psychiatric Psychiatric Exam: Normal Affect and Normal Mood Skin Skin Exam: Warm, Dry, Intact and Normal Color MDM Additional Information Additional Information Obtained From: Old Records and Family Differential Diagnosis Differential Diagnosis: Angina, Chest Wall Pain, CHF, Costochondritis, Myocardial Infarction, Pericarditis, Pleuritis, Pneumonia and Pneumothorax COURSE Treatment Treatment: SEE ORDERS. CARDEZEM 10MG IV BOLUD THEN CARDEZEM DRIP PER PROTOCOL. PATIENTS A FIB CONVERTED IN ER WHILE ON CARDEZEM DRIP. Reevaluation 1st: Improved Consultation Consultation Comments: DISCUSSED PATIENT WITH DR. KANG, HE WILL ADMIT PATIENT. Education/Counseling Education/Counseling: Patient Educated On: Diagnosis and Needs for Follow Up Critical Care Notes Total Time (mins): 30 Critical Diagnosis: A FIB WITH RVR. Critical Interventions: IV CARDIZEM AND MONITOR PATIENT AND PLACE HIM ON CARDIZEM DRIP. DISCUSSED TREATMENT PLAN WITH PATIENT AND HIS . THIS IS NEW ONSET A FIB FOR PATIENT. ROR Labs Reviewed Laboratory Results Reviewed?: Yes Result Diagrams: 02/27/21 22:40 02/27/21 22:40 Laboratory: WBC 9.1 X10^3/uL (3.6-10.0) 02/27/21 22:40 RBC 4.72 X10^6/uL (4.7-6.0) 02/27/21 22:40 Hgb 14.3 g/dL (13.5-18.0) 02/27/21 22:40 Hct 42.1 % (42.0-54.0) 02/27/21 22:40 MCV 89.2 fL (80.0-100.0) 02/27/21 22:40 MCH 30.3 pg (27.0-34.0) 02/27/21 22:40 MCHC 34.0 g/dL (33.0-35.0) 02/27/21 22:40 RDW 15.5 % (11.6-16.5) 02/27/21 22:40 Plt Count 302 X10^3/uL (150.0-450.0) 02/27/21 22:40 MPV 7.1 fL (7.4-11.0) L 02/27/21 22:40 Neut % (Auto) 68.2 % (42.0-75.0) 02/27/21 22:40 Lymph % (Auto) 20.1 % (21.0-51.0) L 02/27/21 22:40 [place] % (Auto) 8.9 % (0.0-13.0) 02/27/21 22:40 Eos % (Auto) 2.2 % (0.9-2.9) 02/27/21 22:40 Baso % (Auto) 0.6 % (0.2-1.0) 02/27/21 22:40 Neut # (Auto) 6.2 x10^3/uL (2.2-4.8) H 02/27/21 22:40 Lymph # (Auto) 1.8 X10^3/uL (1.3-2.9) 02/27/21 22:40 [place] # (Auto) 0.8 x10^3/uL (0.3-0.8) 02/27/21 22:40 Eos # (Auto) 0.2 x10^3/uL (0.0-0.2) 02/27/21 22:40 Baso # (Auto) 0.1 X10^3/uL (0.0-0.1) 02/27/21 22:40 Absolute Nucleated RBC 0.1 /100WBC 02/27/21 22:40 PT 13.0 SECONDS (11.8-14.3) 02/27/21 22:40 INR Target Range - 02/27/21 22:40 INR 1.03 (0.8-1.3) 02/27/21 22:40 APTT 28.5 SECONDS (22.9-36.5) 02/27/21 22:40 PTT Comment - 02/27/21 22:40 Sodium 138 mmol/L (136-145) 02/27/21 22:40 Corrected Sodium 139 mmol/L (136-145) 02/27/21 22:40 Potassium 3.6 mmol/L (3.5-5.1) 02/27/21 22:40 Chloride 100 mmol/L (98-107) 02/27/21 22:40 Carbon Dioxide 28.8 mmol/L (21-32) 02/27/21 22:40 BUN 17 mg/dL (7-18) 02/27/21 22:40 Creatinine 1.12 mg/dL (0.70-1.30) 02/27/21 22:40 Est GFR (MDRD) Af Amer > 60 (>60) 02/27/21 22:40 Est GFR (MDRD) Non-Af > 60 (>60) 02/27/21 22:40 Glucose 130 mg/dL (65-99) H 02/27/21 22:40 Calcium 9.0 mg/dL (8.5-10.1) 02/27/21 22:40 Corrected Calcium TNP 02/27/21 22:40 Total Bilirubin 0.50 mg/dL (0.2-1.0) 02/27/21 22:40 AST 16 Units/L (15-37) 02/27/21 22:40 ALT 21 Units/L (12-78) 02/27/21 22:40 Alkaline Phosphatase 92 Units/L (46-116) 02/27/21 22:40 Creatine Kinase 77 Units/L (39-308) 02/27/21 22:40 CK-MB (CK-2) 1.1 ng/mL (0-4.0) 02/27/21 22:40 CK/CKMB % Calc 1.4 % (<4) 02/27/21 22:40 Troponin I < 0.02 ng/mL (0-1.5) 02/27/21 22:40 B-Natriuretic Peptide 107 pg/mL (0-79) H 02/27/21 22:40 Total Protein 7.5 g/dL (6.4-8.2) 02/27/21 22:40 Albumin 3.6 g/dL (3.4-5.0) 02/27/21 22:40 Globulin 3.9 g/dL (2.5-4.5) 02/27/21 22:40 Albumin/Globulin Ratio 0.9 Ratio (1.1-2.1) L 02/27/21 22:40 SARS CoV-2 RNA Rapid RICKEY Negative (NEGATIVE) 02/27/21 23:03 XRAY XRAY Interpreted by: Radiologist (REPORT NOTED AND DISCUSSED WITH PATIENT.) and Self EKG Rate: 139 [place]: Normal Rhythm: Afib (BIGEMINY AND RAPID RATE.) Block: None Hypertrophy: None ST: Nonsp Opioid Opioid Risk Tool Age (Cory box if 16-45): No History of Preadolescent Sexual Abuse: No Total: 0 Total Score Risk Category: Low Risk Copyright: Marquis SANTIZO predicting aberrant behaviors Diagnosis Discharge Problem: Atrial fibrillation with rapid ventricular response, Chest pain, COPD (chronic obstructive pulmonary disease) Instructions Forms: Precautions for COVID19 [facility] Patient Portal Social Distancing
[2021-02-27 22:56] LABS: EOSINOPHILS # (AUTO) 0.2 x10^3/uL (0.0-0.2); MEAN CORPUSCULAR VOLUME 89.2 fL (80.0-100.0); MEAN PLATELET VOLUME 7.1 fL (7.4-11.0); WHITE BLOOD COUNT 9.1 X10^3/uL (3.6-10.0)
[2021-02-27 22:59] LABS: BASOPHILS # (AUTO) 0.1 X10^3/uL (0.0-0.1); BASOPHILS % (AUTO) 0.6 % (0.2-1.0); EOSINOPHILS % (AUTO) 2.2 % (0.9-2.9); HEMATOCRIT 42.1 % (42.0-54.0); HEMOGLOBIN 14.3 g/dL (13.5-18.0); LYMPHOCYTES # (AUTO) 1.8 X10^3/uL (1.3-2.9); LYMPHOCYTES % (AUTO) 20.1 % (21.0-51.0); MEAN CORPUSCULAR HEMOGLOBIN 30.3 pg (27.0-34.0); MONOCYTES # (AUTO) 0.8 x10^3/uL (0.3-0.8); MONOCYTES % (AUTO) 8.9 % (0.0-13.0); NEUTROPHILS # (AUTO) 6.2 x10^3/uL (2.2-4.8); NEUTROPHILS % (AUTO) 68.2 % (42.0-75.0); PLATELET COUNT 302 X10^3/uL (150.0-450.0); RED BLOOD COUNT 4.72 X10^6/uL (4.7-6.0); RED CELL DISTRIBUTION WIDTH 15.5 % (11.6-16.5)
--- NOTE | 2021-02-27 23:08 | RAD ---
EXAM: CHEST X-RAYHISTORY: Chest pressure. Irregular heart beat.TECHNIQUE: AP CXR dated 02/27/2021 at 10:46 PM.COMPARISON: Chest CT dated April 29, 2020.FINDINGS:The heart size and mediastinum are within normal limits. There is lung parenchymal hyperinflation and hyperlucency in keeping with COPD/emphysema. There is no acute parenchymal infiltrate, pleural effusion, or pneumothorax seen. The visualized bony structures are within normal limits.IMPRESSION:1. No evidence for acute cardiopulmonary disease seen.2. COPD/emphysema.Electronically signed by: Phil Huerta (Feb 27, 2021 23:06:06)
[2021-02-27 23:15] LABS: ALANINE AMINOTRANSFERASE 21 Units/L (12-78); ALBUMIN 3.6 g/dL (3.4-5.0); ALKALINE PHOSPHATASE 92 Units/L (46-116); ASPARTATE AMINO TRANSFERASE 16 Units/L (15-37); BLOOD UREA NITROGEN 17 mg/dL (7-18); CARBON DIOXIDE 28.8 mmol/L (21-32); CHLORIDE 100 mmol/L (98-107); CKMB % 1.4 % (<4); COR NA(FOR HYPERGLY) 139 mmol/L (136-145); CREATINE KINASE 77 Units/L (39-308); CREATINE KINASE MB 1.1 ng/mL (0-4.0); CREATININE 1.12 mg/dL (0.70-1.30); SODIUM 138 mmol/L (136-145); TOTAL PROTEIN 7.5 g/dL (6.4-8.2); TROPONIN I < 0.02 ng/mL (0-1.5); eGFR NON BLACK RACES > 60 (>60)
[2021-02-28] MEDS ORDERED: ULTRAM PO PRN (00:12)
[2021-02-28] MEDS ORDERED: PATIENT'S HOME MEDICATION (Fluticasone-Umeclidin-Vilanter [Trelegy Ellipta] 100-62.5-25 mc IN PRN (00:12)
[2021-02-28] MEDS: DUONEB 0.5 MG/3 MG (3 mL) NEB SCH ×3 (00:45→08:34)
[2021-02-28 00:47] VITALS: BMI 40.5
[2021-02-28] MEDS ORDERED: NEURONTIN CAP 400 MG PO SCH (01:00)
[2021-02-28] MEDS ORDERED: FLOMAX PO SCH (01:00)
[2021-02-28 04:54] LABS: BASOPHILS % (AUTO) 0.7 % (0.2-1.0); EOSINOPHILS # (AUTO) 0.2 x10^3/uL (0.0-0.2); EOSINOPHILS % (AUTO) 3.1 % (0.9-2.9); HEMATOCRIT 38.3 % (42.0-54.0); HEMOGLOBIN 12.7 g/dL (13.5-18.0); LYMPHOCYTES # (AUTO) 1.6 X10^3/uL (1.3-2.9); MEAN CORPUSCULAR HEMOGLOBIN 29.7 pg (27.0-34.0); MEAN CORPUSCULAR HGB CONC 33.2 g/dL (33.0-35.0); MEAN CORPUSCULAR VOLUME 89.5 fL (80.0-100.0); MEAN PLATELET VOLUME 7.2 fL (7.4-11.0); MONOCYTES # (AUTO) 0.8 x10^3/uL (0.3-0.8); MONOCYTES % (AUTO) 11.9 % (0.0-13.0); NEUTROPHILS # (AUTO) 4.3 x10^3/uL (2.2-4.8); NEUTROPHILS % (AUTO) 61.3 % (42.0-75.0); PLATELET COUNT 265 X10^3/uL (150.0-450.0); RED BLOOD COUNT 4.28 X10^6/uL (4.7-6.0); RED CELL DISTRIBUTION WIDTH 15.8 % (11.6-16.5); WHITE BLOOD COUNT 7.1 X10^3/uL (3.6-10.0)
[2021-02-28 04:54] LABS: BILIRUBIN,URINE NEGATIVE (NEGATIVE); BLOOD/HEMOGLOBIN,URINE NEGATIVE (NEGATIVE); GLUCOSE, URINE NEGATIVE (NEGATIVE); KETONES,URINE NEGATIVE (NEGATIVE); LEUKOCYTE ESTERASE ,URINE NEGATIVE (NEGATIVE); NITRITES,URINE NEGATIVE (NEGATIVE); PROTEIN,URINE 2+ (NEGATIVE); UROBILINOGEN,URINE NORMAL (NORMAL)
[2021-02-28 05:13] LABS: ALANINE AMINOTRANSFERASE 18 Units/L (12-78); ALBUMIN 3.2 g/dL (3.4-5.0); ALKALINE PHOSPHATASE 76 Units/L (46-116); ASPARTATE AMINO TRANSFERASE 14 Units/L (15-37); BLOOD UREA NITROGEN 17 mg/dL (7-18); CALCIUM 8.8 mg/dL (8.5-10.1); CARBON DIOXIDE 32.2 mmol/L (21-32); CHLORIDE 102 mmol/L (98-107); CKMB % 1.9 % (<4); COR CA(FOR HYPOALB) 9.4 mg/dL (8.5-10.1); CREATINE KINASE 62 Units/L (39-308); CREATINE KINASE MB 1.2 ng/mL (0-4.0); CREATININE 1.06 mg/dL (0.70-1.30); SODIUM 139 mmol/L (136-145); TOTAL PROTEIN 6.5 g/dL (6.4-8.2); TROPONIN I 0.08 ng/mL (0-1.5); eGFR NON BLACK RACES > 60 (>60)
[2021-02-28 05:19] LABS: APPEARANCE,URINE CLEAR (CLEAR); BACTERIA,URINE NEGATIVE /HPF (NEGATIVE); COLOR,URINE YELLOW (YELLOW); RBC,URINE NONE SEEN /HPF (0-3); SQUAMOUS EPITHELIAL CELL,UR NEGATIVE /HPF (NEGATIVE)
--- NOTE | 2021-02-28 08:51 | DR.H&P ---
H&P History & Physical for Day of: H&P Date: 02/28/21 Chief Complaint Chief Complaint: Chest tightness Allergies Allergies Allergy/AdvReac Type Severity Reaction Status Date / Time No Known Drug Allergies Allergy Verified 03/27/20 10:32 History of Present Illness History of Present Illness: Pt is a 76 year old male past medical history of Hypertension, DMT2, EARLINE, presenting with chest tightness. He reports having an "uncomfortable" feeling in his chest last night and went to the ED. In the ED, he was found to be in atrial fibrillation with RVR. Labs/imaging: Wbc 7.1, Hgb 12.7, Plt 265, Na 139, K 3.9, Creatinine 1.06, Glucose 103, Troponin x 3 negative, UA negative, COVID-19 negative, CXR showing emphysema. He was initially started on Cardizem gtt that was brief duration before he spontaneously cardioverted. Pt was started back on his Coreg and monitored on telemetry. He was also started on Eliquis. Echo was obtained that revealed: prelim pEF. Throughout the day patient remained in Normal sinus rhythm. He was discharged with instructions to continue Coreg and Eliquis. He will need cardiology follow up outpatient. Instructed to follow up with pcp in 3-5 days. Past Medical History Past Medical History: Diabetes, Hypertension and Sleep Apnea Past Surgical History Surgical History: Ortho Surgery Family History Family Medical History: Diabetes Mellitus, Cancer, [place], Coronary Artery Disease and Hypertension Social History Does patient currently use any type of tobacco product: No Have you used tobacco products in the last 12 months: No Type of Tobacco Use: None Does any household member use tobacco: No Alcohol Use: None Medications Home Medications: No Known Drug Allergies Allergy (Verified 03/27/20 10:32) CONTINUE taking the following medications atorvastatin [Lipitor] 80 mg PO HS 02/27/21 [History] glimepiride 2 mg PO DAILY 02/27/21 [History] Labs Result Diagrams: 02/28/21 04:20 02/28/21 04:20 Labs: Laboratory WBC 7.1 X10^3/uL (3.6-10.0) 02/28/21 04:20 RBC 4.28 X10^6/uL (4.7-6.0) L 02/28/21 04:20 Hgb 12.7 g/dL (13.5-18.0) L 02/28/21 04:20 Hct 38.3 % (42.0-54.0) L 02/28/21 04:20 MCV 89.5 fL (80.0-100.0) 02/28/21 04:20 MCH 29.7 pg (27.0-34.0) 02/28/21 04:20 MCHC 33.2 g/dL (33.0-35.0) 02/28/21 04:20 RDW 15.8 % (11.6-16.5) 02/28/21 04:20 Plt Count 265 X10^3/uL (150.0-450.0) 02/28/21 04:20 MPV 7.2 fL (7.4-11.0) L 02/28/21 04:20 Neut % (Auto) 61.3 % (42.0-75.0) 02/28/21 04:20 Lymph % (Auto) 23.0 % (21.0-51.0) 02/28/21 04:20 [place] % (Auto) 11.9 % (0.0-13.0) 02/28/21 04:20 Eos % (Auto) 3.1 % (0.9-2.9) H 02/28/21 04:20 Baso % (Auto) 0.7 % (0.2-1.0) 02/28/21 04:20 Neut # (Auto) 4.3 x10^3/uL (2.2-4.8) 02/28/21 04:20 Lymph # (Auto) 1.6 X10^3/uL (1.3-2.9) 02/28/21 04:20 [place] # (Auto) 0.8 x10^3/uL (0.3-0.8) 02/28/21 04:20 Eos # (Auto) 0.2 x10^3/uL (0.0-0.2) 02/28/21 04:20 Baso # (Auto) 0.0 X10^3/uL (0.0-0.1) 02/28/21 04:20 Absolute Nucleated RBC 0.1 /100WBC 02/28/21 04:20 PT 13.0 SECONDS (11.8-14.3) 02/27/21 22:40 INR Target Range - 02/27/21 22:40 INR 1.03 (0.8-1.3) 02/27/21 22:40 APTT 28.5 SECONDS (22.9-36.5) 02/27/21 22:40 PTT Comment - 02/27/21 22:40 Sodium 139 mmol/L (136-145) 02/28/21 04:20 Corrected Sodium TNP 02/28/21 04:20 Potassium 3.9 mmol/L (3.5-5.1) 02/28/21 04:20 Chloride 102 mmol/L (98-107) 02/28/21 04:20 Carbon Dioxide 32.2 mmol/L (21-32) H 02/28/21 04:20 BUN 17 mg/dL (7-18) 02/28/21 04:20 Creatinine 1.06 mg/dL (0.70-1.30) 02/28/21 04:20 Est GFR (MDRD) Af Amer > 60 (>60) 02/28/21 04:20 Est GFR (MDRD) Non-Af > 60 (>60) 02/28/21 04:20 Glucose 103 mg/dL (65-99) H 02/28/21 04:20 Calcium 8.8 mg/dL (8.5-10.1) 02/28/21 04:20 Corrected Calcium 9.4 mg/dL (8.5-10.1) 02/28/21 04:20 Total Bilirubin 0.30 mg/dL (0.2-1.0) 02/28/21 04:20 AST 14 Units/L (15-37) L 02/28/21 04:20 ALT 18 Units/L (12-78) 02/28/21 04:20 Alkaline Phosphatase 76 Units/L (46-116) 02/28/21 04:20 Creatine Kinase 62 Units/L (39-308) 02/28/21 04:20 CK-MB (CK-2) 1.2 ng/mL (0-4.0) 02/28/21 04:20 CK/CKMB % Calc 1.9 % (<4) 02/28/21 04:20 Troponin I 0.08 ng/mL (0-1.5) 02/28/21 04:20 B-Natriuretic Peptide 107 pg/mL (0-79) H 02/27/21 22:40 Total Protein 6.5 g/dL (6.4-8.2) 02/28/21 04:20 Albumin 3.2 g/dL (3.4-5.0) L 02/28/21 04:20 Globulin 3.3 g/dL (2.5-4.5) 02/28/21 04:20 Albumin/Globulin Ratio 1.0 Ratio (1.1-2.1) L 02/28/21 04:20 TSH 3rd Generation 2.233 uIU/mL (0.358-3.74) 02/27/21 22:40 Specimen Type Clean catch urine 02/28/21 04:26 Urine Color Yellow (YELLOW) 02/28/21 04:26 Urine Appearance Clear (CLEAR) 02/28/21 04:26 Urine pH 5.0 (5.0 - 8.0) 02/28/21 04:26 Ur Specific [place] 1.020 (1.000-1.030) 02/28/21 04:26 Urine Protein 2+ (NEGATIVE) 02/28/21 04:26 Urine Glucose (UA) Negative (NEGATIVE) 02/28/21 04:26 Urine Ketones Negative (NEGATIVE) 02/28/21 04:26 Urine Occult Blood Negative (NEGATIVE) 02/28/21 04:26 Urine Nitrite Negative (NEGATIVE) 02/28/21 04:26 Urine Bilirubin Negative (NEGATIVE) 02/28/21 04:26 Urine Urobilinogen Normal (NORMAL) 02/28/21 04:26 Ur Leukocyte Esterase Negative (NEGATIVE) 02/28/21 04:26 Urine RBC None seen /HPF (0-3) 02/28/21 04:26 Urine WBC None seen /HPF (0-5) 02/28/21 04:26 Ur Squamous Epith Cells Negative /HPF (NEGATIVE) 02/28/21 04:26 Urine Bacteria Negative /HPF (NEGATIVE) 02/28/21 04:26 Ur Culture Indicated? No/not indicated 02/28/21 04:26 SARS CoV-2 RNA Rapid RICKEY Negative (NEGATIVE) 02/27/21 23:03 Review of Systems Constitutional: No Symptoms Reported Eyes: No Symptoms Reported ENT: No Symptoms Reported Respiratory: No Symptoms Reported Cardiovascular: Chest Pain and Palpitations Gastrointestinal: No Symptoms Reported Genitourinary: No Symptoms Reported Musculoskeletal: No Symptoms Reported Skin: No Symptoms Reported Neurological: No Symptoms Reported Physical Exam Vital Signs: Temperature 97.8 F Pulse Rate [Right Radial] 59 Pulse Rate 67 Respiratory Rate 21 Blood Pressure [Left Arm] 112/68 Blood Pressure 154/82 O2 Sat by Pulse Oximetry 97 Oriented: Normal Eyes: Normal Ear: Normal Nose: Normal Throat: Normal Respiratory: Clear Throughout Cardiovascular: Normal : Normal Auscultation: Bowel Sounds: Normal Palpation: Normal Tenderness: Normal Skin: Normal Musculoskeletal: Normal Psychiatric: Normal Mood Description: Calm and Appropriate Affect: Normal Speech Pattern: Clear and Appropriate Assessment/Plan (1) Atrial fibrillation with rapid ventricular response: Status: Acute Plan: New onset, spontaneous cardioversion, Continue Eliquis and Coreg 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 Review H&P Reviewed: Yes Patient was examined?: Yes
[2021-02-28] MEDS ORDERED: PULMICORT NEB TX 0.5 MG NEB PRN (09:00)
[2021-02-28] MEDS ORDERED: ZYLOPRIM PO SCH (09:00)
[2021-02-28] MEDS ORDERED: PROSCAR PO SCH (09:00)
[2021-02-28] MEDS ORDERED: COREG TAB 25 MG PO SCH ×2 (09:00)
[2021-02-28] MEDS ORDERED: AMARYL TAB 4 MG PO SCH (09:00)
[2021-02-28] MEDS ORDERED: ELIQUIS PO SCH (09:00)
[2021-02-28] MEDS ORDERED: COZAAR PO SCH (09:00)
[2021-02-28] MEDS ORDERED: PriLOSEC PO SCH (09:00)
[2021-02-28 11:31] LABS: CKMB % 2.7 % (<4); CREATINE KINASE MB 1.7 ng/mL (0-4.0); TROPONIN I 0.03 ng/mL (0-1.5)
[2021-02-28] MEDS ORDERED: ULTRAM PO ONE (16:05)
[2021-02-28 17:48] VITALS: BP 142/65
[2021-02-28] MEDS ORDERED: SNACK - Diabetic Appropriate PO SCH (20:00)
[2021-02-28] MEDS ORDERED: LIPITOR TAB 80 MG PO SCH (21:00)
[2021-03-01 13:11] LABS: BAND NEUTROPHILS % 6 % (0-10); METAMYELOCYTES % 1
[2021-03-01 13:12] LABS: BURR CELLS SLIGHT; PLATELET MORPHOLOGY COMMENT NORMAL (NORMAL)
== END 2021-02-28 06:00 | disposition home or self-care (01) | DRG 310 ==
LOC: ER 22:28 → ICU 23:30
PROVIDERS: ADMIT Internal Medicine; ATTEND Family Medicine
DX: R07.89 Other chest pain; R06.02 Shortness of breath; J44.9 Chronic obstructive pulmonary disease, unspecified; E11.65 Type 2 diabetes mellitus with hyperglycemia; I48.91 Unspecified atrial fibrillation; Z20.822 Contact with and (suspected) exposure to COVID-19; I10 Essential (primary) hypertension